=== PATIENT | female | born 1955 | race Caucasian/White ===

== ENCOUNTER → 2022-05-13 13:51 | Outpatient (BNVA) | payer MEDICARE, OTHER, SELFPAY | PROVIDERS: PCP Family Medicine; Visit Provider Podiatrist Foot & Ankle Surgery | DX: L84 Corns and callosities (principal); G60.9 Hereditary and idiopathic neuropathy, unspecified; R60.9 Edema, unspecified | CPT/HCPCS: 11056; 99203 ==

== ENCOUNTER → 2022-06-24 13:12 | Outpatient (BNVA) | payer MEDICARE, OTHER, SELFPAY | PROVIDERS: PCP Family Medicine; Visit Provider Podiatrist Foot & Ankle Surgery | DX: R60.9 Edema, unspecified (principal); G60.9 Hereditary and idiopathic neuropathy, unspecified; Q82.8 Other specified congenital malformations of skin; B35.1 Tinea unguium; L84 Corns and callosities | CPT/HCPCS: 99213 ==

== ENCOUNTER → 2022-08-24 13:37 | Outpatient (BNVA) | payer MEDICARE, OTHER, SELFPAY | PROVIDERS: PCP Family Medicine; Referring Provider Family Medicine; Visit Provider Specialist | DX: G60.9 Hereditary and idiopathic neuropathy, unspecified (principal); M54.12 Radiculopathy, cervical region | CPT/HCPCS: 99204 ==

== ENCOUNTER 2022-09-01 10:27 | Outpatient (CLI) | payer MEDICARE, OTHER, SELFPAY ==
--- NOTE | 2022-09-01 10:35 | MM_ITS ---
WS: [id number] BILATERAL SCREENING DIGITAL TOMOSYNTHESIS MAMMOGRAM WITH CAD HISTORY: SCREENING COMPARISON: 08/29/2021 and 08/28/2020 Bilateral CC and MLO views with tomosynthesis and synthetic mammography submitted. Computer aided det ection analyzed. Breast composition: The breasts are heterogeneously dense, which may obscure small masses. No suspici ous masses, microcalcifications or architectural distortion. Bilateral vascular calcifications. MM/[place] [id number] IMPRESSION: BI-RADS: 2-Benign FOLLOW UP: 1 Year Follow-up
== END 2022-09-01 10:28 | disposition home or self-care (01) ==
LOC: RAD 10:28
PROVIDERS: PCP Family Medicine; Visit Provider Family Medicine
DX: Z12.31 Encounter for screening mammogram for malignant neoplasm of breast (principal)
CPT/HCPCS: 77063; 77067

== ENCOUNTER → 2022-09-03 08:16 | Outpatient (BNVA) | payer MEDICARE, OTHER, SELFPAY | PROVIDERS: PCP Family Medicine; Visit Provider Podiatrist Foot & Ankle Surgery | DX: Q82.8 Other specified congenital malformations of skin (principal); R60.9 Edema, unspecified; G60.9 Hereditary and idiopathic neuropathy, unspecified; B35.1 Tinea unguium; L84 Corns and callosities | CPT/HCPCS: 11721; 17110 ==

== ENCOUNTER → 2022-09-16 08:09 | Outpatient (BNVA) | payer MEDICARE, OTHER, SELFPAY | PROVIDERS: PCP Family Medicine; Visit Provider Podiatrist Foot & Ankle Surgery | DX: Q82.8 Other specified congenital malformations of skin (principal); R60.9 Edema, unspecified; G60.9 Hereditary and idiopathic neuropathy, unspecified; B35.1 Tinea unguium; L84 Corns and callosities | CPT/HCPCS: 17110; 99213 ==

== ENCOUNTER 2022-09-30 08:36 | Outpatient (CLI) | payer MEDICARE, OTHER, SELFPAY ==
--- NOTE | 2022-09-30 08:45 | XRR_ITS ---
PROCEDURE INFORMATION: Exam: XR Left Shoulder Exam date and time: 09/30/2022 8:50 AM Age: 66 years old Clinical indication: Injury or trauma; Fall; Blunt trauma (contusions or hematomas); Left; Injury details: History--lt shoulder pain, PT fell 3 days ago; Additional info: Left shoulder pain after a fall TECHNIQUE: Imaging protocol: Radiologic exam of the Left shoulder. Views: 2 or more views. COMPARISON: No relevant prior studies available. FINDINGS: Bones/joints: Mild degenerative changes are present in the acromioclavicular joint. The glenohumeral joint is unremarkable. There is no fracture, dislocation or other acute abnormality. Soft tissues: Normal. XR/XR shoulder LT min 2V* [id number] IMPRESSION: No acute abnormality.
== END 2022-09-30 08:37 | disposition home or self-care (01) ==
LOC: RAD 08:42
PROVIDERS: PCP Family Medicine; Visit Provider Clinical Nurse Specialist Adult Health
DX: M25.512 Pain in left shoulder (principal)
CPT/HCPCS: 73030

== ENCOUNTER → 2022-10-01 09:21 | Outpatient (BNVA) | payer MEDICARE, OTHER, SELFPAY | PROVIDERS: PCP Family Medicine; Visit Provider Clinical Nurse Specialist Adult Health | DX: M25.562 Pain in left knee (principal); R29.6 Repeated falls; R53.1 Weakness | CPT/HCPCS: 81000 ==

== ENCOUNTER 2022-10-13 14:33 | Outpatient (RCR) | payer MEDICARE, SELFPAY | END 2022-10-29 16:28 | disposition home or self-care (01) | LOC: SPT 14:33 | PROVIDERS: PCP Family Medicine; Visit Provider Clinical Nurse Specialist Adult Health | DX: R29.6 Repeated falls (principal); R53.1 Weakness | CPT/HCPCS: 97110; 97161; 97530 ==

== ENCOUNTER 2022-10-28 08:06 | Outpatient (CLI) | payer MEDICARE, SELFPAY ==
--- NOTE | 2022-10-28 08:45 | MR_ITS ---
WS: [id number] MRI LEFT SHOULDER HISTORY: Severe left shoulder pain that and possible rotator cuff tear COMPARISON: Shoulder radiograph 09/30/2022 TECHNIQUE: Multiplanar sequences of the shoulder joint are submitted. Moderate narrowing of the AC joint. Small erosions along the articular surface of the acromion. Osteo phytic ridging around the distal clavicle and the acromion. Osteophytes encroach upon the supraspinat us tendon and muscle. Moderate subacromial impingement secondary to a 5 mm osteophyte. Biceps tendon remains in the bicipital groove. No os acromion. No acute fracture. Small amount of fluid in the subacromial and subdeltoid bursa and also the subscapularis recess. Ther e is marked thickening of the distal supraspinatus tendon. There is an additional very small insertio n site tear of the supraspinatus. No retraction of the tendon. The tear involves the articular anteri or surface. Moderate tendinopathy in the more proximal tendon. No muscle atrophy or edema. Mild narrowing of the glenohumeral joint. Mild osteophytic ridging around the humeral head. Superior labral tear. Anterior involves only a small portion of the superior labrum. The anterior labrum appea rs intact. MR/MR shoulder LT wo con* [id number] IMPRESSION: 1. Small insertion site tear anterior supraspinatus tendon involving the artic ular surface. 2. Moderate tendinopathy in the distal supraspinatus tendon. 3. Moderate AC joint arthritis. 4. Moderate subacromial impingement. 5. Superior labral tear.
== END 2022-10-28 08:07 | disposition home or self-care (01) ==
LOC: RAD 08:07
PROVIDERS: PCP Family Medicine; Visit Provider Family Medicine
DX: S43.432A Superior glenoid labrum lesion of left shoulder, initial encounter (principal); X58.XXXA Exposure to other specified factors, initial encounter; M13.812 Other specified arthritis, left shoulder
CPT/HCPCS: 73221

== ENCOUNTER → 2022-11-18 13:27 | Outpatient (BNVA) | payer MEDICARE, SELFPAY | PROVIDERS: PCP Family Medicine; Referring Provider Family Medicine; Visit Provider Specialist | DX: S46.812A Strain of other muscles, fascia and tendons at shoulder and upper arm level, left arm, initial encounter (principal); W01.198A Fall on same level from slipping, tripping and stumbling with subsequent striking against other object, initial encounter; Z91.81 History of falling; M77.8 Other enthesopathies, not elsewhere classified | CPT/HCPCS: 20610; 73030; 99204; J1100; J2795; J3301 ==

== ENCOUNTER 2022-12-07 11:35 | Outpatient (RCR) | payer MEDICARE, SELFPAY | END 2023-01-01 23:59 | disposition home or self-care (01) | LOC: SPT 11:35 | PROVIDERS: PCP Family Medicine; Visit Provider Specialist | DX: M25.512 Pain in left shoulder (principal); M25.511 Pain in right shoulder | CPT/HCPCS: 97110; 97162 ==

== ENCOUNTER → 2022-12-09 11:31 | Outpatient (BNVA) | payer MEDICARE, SELFPAY | PROVIDERS: PCP Family Medicine; Visit Provider Specialist | DX: M75.111 Incomplete rotator cuff tear or rupture of right shoulder, not specified as traumatic (principal); M19.011 Primary osteoarthritis, right shoulder | CPT/HCPCS: 73030; 99214 ==

== ENCOUNTER 2023-01-02 06:00 | Outpatient (RCR) | payer MEDICARE, SELFPAY | END 2023-01-31 23:59 | disposition home or self-care (01) | LOC: SPT 06:00 | PROVIDERS: PCP Family Medicine; Visit Provider Specialist | DX: M25.511 Pain in right shoulder (principal); M25.512 Pain in left shoulder | CPT/HCPCS: 97110; 97140 ==

== ENCOUNTER → 2023-01-28 08:08 | Outpatient (BNVA) | payer MEDICARE, SELFPAY | PROVIDERS: PCP Family Medicine; Visit Provider Family Medicine | DX: M25.562 Pain in left knee (principal); I10 Essential (primary) hypertension; E78.5 Hyperlipidemia, unspecified; E03.9 Hypothyroidism, unspecified; M79.7 Fibromyalgia; M19.011 Primary osteoarthritis, right shoulder; G60.9 Hereditary and idiopathic neuropathy, unspecified; R53.1 Weakness | CPT/HCPCS: 80053; 80061; 84439; 84443; 85025 ==

== ENCOUNTER → 2023-02-02 09:23 | Outpatient (BNVA) | payer MEDICARE, SELFPAY | PROVIDERS: PCP Family Medicine; Referring Provider Specialist; Visit Provider Specialist | DX: G60.9 Hereditary and idiopathic neuropathy, unspecified (principal); M79.7 Fibromyalgia; Z91.81 History of falling; Z72.3 Lack of physical exercise | CPT/HCPCS: 99214 ==

== ENCOUNTER → 2023-02-10 08:24 | Outpatient (BNVA) | payer MEDICARE, SELFPAY | PROVIDERS: PCP Family Medicine; Visit Provider Specialist | DX: M19.011 Primary osteoarthritis, right shoulder (principal); M75.111 Incomplete rotator cuff tear or rupture of right shoulder, not specified as traumatic; M77.8 Other enthesopathies, not elsewhere classified; M25.812 Other specified joint disorders, left shoulder | CPT/HCPCS: 99214 ==

== ENCOUNTER → 2023-04-02 06:57 | Outpatient (BNVA) | payer MEDICARE, SELFPAY | PROVIDERS: PCP Family Medicine; Visit Provider Student in an Organized Health Care Education/Training Program | DX: M25.812 Other specified joint disorders, left shoulder (principal); M75.102 Unspecified rotator cuff tear or rupture of left shoulder, not specified as traumatic; M19.012 Primary osteoarthritis, left shoulder | CPT/HCPCS: 99204 ==

== ENCOUNTER → 2023-04-21 10:57 | Outpatient (BNVA) | payer MEDICARE, SELFPAY | PROVIDERS: PCP Family Medicine; Visit Provider Clinical Nurse Specialist Adult Health | DX: Z01.818 Encounter for other preprocedural examination (principal) | CPT/HCPCS: 80048; 85025 ==

== ENCOUNTER 2023-04-26 09:34 | Day surgery (SDC) | payer MEDICARE, SELFPAY ==
[2023-04-23 08:27] VITALS: BMI 36.2
[2023-04-26] VITALS (11 sets, daily range): BP systolic 84–168; BP diastolic 58–78; PULSE 57–81; RESP 12–18; TEMP 35.6–36.6; O2SAT 94–100
[2023-04-26] MEDS: sodium chloride 0.9% 1,000 ML 30 ML IV (10:13)
[2023-04-26] MEDS: acetaminophen 1,000 MG/100 ML PIGGYBACK 400 MG IV (10:14)
--- NOTE | 2023-04-26 10:21 | P.ANESASSM_ITS ---
Pre-Anesthetic Assessment Height/Weight: Height 1.65 m Weight 98.883 kg Temp Pulse Resp BP Pulse Ox O2 Del Method 97.8 F 63 17 168/74 94 Room Air 04/26/23 09:53 04/26/23 09:53 04/26/23 09:53 04/26/23 09:53 04/26/23 09:53 04/26/23 09:56 Preop Diagnosis: Left shoulder rotator cuff tear, biceps tendon tear, AC joint arthritis lab Operation Date: 04/26/23 11:00 Proposed Procedures p Left shoulder diagnostic and surgical arthroscopy with rotator cuff repair 95040, M25.812, M75.102, M19.012(Left) - Guillermo Meena, DO s labral debridement 76342(Left) - Guillermo Meena, DO s Bicep Tenotomy(Left) - Guillermo Lebanon, DO s AC joint resection 44494(Left) - Guillermo Meena, DO s Subacromial Decompression 29070(Left) - Guillermo Meena, DO Familial anesthetic complications: Overdose of opiates post op d/t uncontrolled pain, requiring narcan and MICU stay Was Beta Alvina taken within 24 hours: Yes Was Clonidine taken within 24 hours: N/A Last intake: Intake Last Liquid Date 04/25/23 Last Liquid Time 21:00 Last Solid Date 04/25/23 Last Solid Time 21:00 Social No alcohol and No tobacco Exam alert, oriented x 3, clear to auscultation bilaterally and regular rate & rhythm Airway Mallampati: Class II Dentition: full Pulmonary Sleep Apnea CV/HEM Arrythmia (sinus tachy) and Hypertension MTHFR GI Gastroesophageal Reflux Disease Metabolic Morbid Obesity and Thyroid Disease [facility] [place] Fibromyalgia Anesthetic Plan ASA status: 3 Anesthesia: General and Regional (specify below) Risk of > 500 ml blood loss (7ml/kg in children): No Medications/Allergies Home Medications Medication Instructions Recorded Confirmed Last Taken Type pantoprazole 40 mg tablet,delayed 40 mg PO BID 04/30/22 04/23/23 04/25/23 History release Compression Stockings #1 ea 06/24/22 04/21/23 Unknown Rx alendronate 70 mg tablet (Fosamax) 70 mg PO ONCE #12 tabs 10/09/22 04/23/23 04/17/23 Rx duloxetine 60 mg capsule,delayed 60 mg PO BID #180 caps 10/09/22 04/23/23 04/25/23 Rx release losartan 50 mg tablet 50 mg PO DAILY #90 tabs 10/09/22 04/23/23 04/25/23 Rx levothyroxine 100 mcg tablet 100 mcg PO DAILY #90 tabs 10/12/22 04/23/23 04/25/23 Rx (Synthroid) metoprolol tartrate 25 mg tablet 25 mg PO BID #180 tabs 10/12/22 04/23/23 04/26/23 06:00 Rx tizanidine 4 mg tablet 4 mg PO BID PRN muscle spasticity 01/28/23 04/23/23 04/25/23 Rx #60 tabs gabapentin 300 mg capsule 300 mg PO TID 90 days #270 caps 03/19/23 04/23/23 04/25/23 Rx Allergies Allergy/AdvReac Type Severity Reaction Status Date / Time shellfish derived Allergy Intermediate sob Verified 04/26/23 09:48 vancomycin Allergy Intermediate ALGY-Hives Verified 04/26/23 09:48 ethyl alcohol Allergy ALGY-Difficulty Verified 04/26/23 09:48 Breathing pregabalin [From Lyrica] Allergy ADR-Nausea Verified 04/26/23 09:48 tramadol [From Ultram] AdvReac Intermediate nausea Verified 04/26/23 09:48 amoxicillin [From Augmentin] AdvReac Mild vomitting Verified 04/26/23 09:48 azithromycin AdvReac Mild diarrhea Verified 04/26/23 09:48 clavulanic acid AdvReac Mild vomitting Verified 04/26/23 09:48 [From Augmentin] erythromycin base AdvReac Mild vomitting Verified 04/26/23 09:48 Current Medications Generic Name Dose Route Start Last Admin Trade Name Freq PRN Reason Stop Dose Admin Sodium Chloride 1,000 mls @ 30 mls/hr 04/26/23 09:45 04/26/23 10:13 Sodium Chloride 0.9% IV 04/27/23 09:44 30 mls/hr .Q24H HUYEN Administration PFSH Anesthesia Medical History (Updated 04/21/23 @ 10:43 by Siddhartha Basurto NP) Fibromyalgia Hyperlipidemia not currently on medication Hypertension Hypothyroid Idiopathic neuropathy Inappropriate sinus tachycardia MTHFR mutation RADHA (obstructive sleep apnea) compliant with CPAP Surgical History History of hernia surgery History of hip surgery History of laparoscopic cholecystectomy Hx of hysterectomy hyst with oopherectomy Hx of total knee replacement Family History Mother Cancer ovarian Stroke Denies family history of Anesthesia complication Bleeding disorder Social History Smoking and tobacco status: former smoker Quit status (tobacco): has quit using tobacco Year quit tobacco: 1pack per day for 14 year Former quit date comment: 1987 Substance/Drug Use: never Data Anesthesia Cardiac Studies: No Data to Display
--- NOTE | 2023-04-26 10:40 | ANES.PROC ---
Anesthesia Procedures Procedure/Date: 04/26/23 Nerve Block ^: Nerve Block 1: Main Anesthesia: general anesthesia Time Out Performed: Yes Consent: requested by attending/covering physician, from patient, from other, risks and benefits reviewed and patient agrees to proceed Nerve block location: interscalene (L) Anesthesia monitors applied: pulse oximetry, EKG, BP cuff and oxygen Nerve block position: semi sitting Anesthetic Used: ropivicaine 0.5% (20 ml) and with decadron (4 mg) Ultrasound used to: recognize landmarks, visualize and ID brachial plexus and visualize and ID interscalene groove Nerve Stimulator Used?: No Interscalene/Femoral BLK: 2 stimuplex 22 g needle used for position and inplane approach, visualize local anesthetic spread and no vascular puncture identified Injection: neg aspiration of heme Patient Tolerated Procedure: well and no complications Complications: none
[2023-04-26] MEDS: ondansetron 2 mg/ML SDV 2 mL 4 MG IVP (10:59)
--- NOTE | 2023-04-26 11:20 | W.PM.OPSUD ---
Surgery/Procedure H&P Update DATE OF PROCEDURE: April 26, 2023 DATE H&P PERFORMED: 04/21/23 CHANGES TO PREVIOUS DOCUMENTATION: None. No change in HPI from office visit on 04/21/2023. Patient has left shoulder rotator cuff tear AC joint arthritis as well as subacromial impingement superior labral tear we talked about treatment options and through shared decision making she elects proceed with surgical intervention all questions answered at this time. PREOP DIAGNOSIS: Left shoulder rotator cuff tear, biceps tendon tear, AC joint arthritis lab PRIMARY INDICATION FOR PROCEDURE: Shoulder rotator cuff tear, biceps tendon/superior labral tear, AC joint arthritis, subacromial impingement PLANNED PROCEDURE: Operation Date: 04/26/23 11:00 Proposed Procedures p Left shoulder diagnostic and surgical arthroscopy with rotator cuff repair 84118, M25.812, M75.102, M19.012(Left) - Guillermo Powhatan, DO s labral debridement 72396(Left) - Guillermo Paredesatt, DO s Bicep Tenotomy(Left) - Guillermo Robledo DO s AC joint resection 05443(Left) - Guillermo Powhatan, DO s Subacromial Decompression 85074(Left) - Guillermo Robeldo, DO
[2023-04-26] MEDS: ceFAZolin 2,000 MG in sodium chloride 0.9% (plus) 50 ML 100 MG IV (11:37)
[2023-04-26] MEDS: EPINEPHrine 1 mg/mL INJ 2 MG XX (12:28)
--- NOTE | 2023-04-26 13:33 | PM.OP2 ---
Brief Operative Note Date of procedure: 04/26/23 Pre-op diagnosis: Left shoulder rotator cuff tear, biceps tendon tear, labral tear, AC arthri Post-op diagnosis: same (AC joint arthritis, subacromial impingement) Procedure Done: Left shoulder diagnostic and surgical arthroscopy with arthroscopic rotator cuff repair (small) Left shoulder diagnostic and surgical arthroscopy with biceps tenotomy Left shoulder diagnostic and surgical arthroscopy with labral debridement Left shoulder diagnostic and surgical arthroscopy with AC joint resection (distal clavicle excision) Left shoulder diagnostic and surgical arthroscopy with subacromial decompression (acromioplasty and bursectomy) Surgeon: Guillermo Robledo Estimated blood loss (mL): 5 Complications: none Post-op Plan: Patient taken to PACU in stable condition recovering well. Shoulder sling with abduction pillow on in place patient receive appropriate discharge instructions as well as pain medication postoperatively. We will follow postoperative rotator cuff repair protocol. Maintain sling at all times. Given appropriate instructions for dressing we will follow-up in the orthopedic office in 2 weeks. Understand if they have any questions or concerns and contact the office. Condition: stable Disposition: same day Coding Level of Care Code Acute Code for Danika Yan
--- NOTE | 2023-04-26 13:38 | P.OP_ITS ---
Operative Report Date of procedure: April 26, 2023 Pre-op diagnosis: Preop Diagnosis Left shoulder rotator cuff tear, biceps tendon tear, AC joint arthritis lab Procedure: Post-op diagnosis: Left?shoulder?labral tear Left?shoulder?biceps tendon tear Left?shoulder?rotator cuff tear Left?shoulder?AC joint arthritis Left?shoulder?subacromial bursitis/impingement Procedure done: Left?shoulder?diagnostic and surgical arthroscopy with arthroscopic rotator cuff repair(small) Left?shoulder?diagnostic and surgical arthroscopy biceps tenotomy Left?shoulder?diagnostic and surgical arthroscopy labral debridement Left?shoulder?diagnostic and surgical arthroscopy acromioclavicular joint resection Left?shoulder?diagnostic and surgical arthroscopy subacromial decompression (acromioplasty and bursectomy) Surgeon: Guillermo Robledo DO Estimated blood loss: 5mL IV fluids: See anesthesia record Implants: Arthrex 4.75 swivel lock Arthrex scorpion and suture tape Complications: None Condition: stable Disposition: same day Brief History: Patient been seen and worked up in the outpatient setting for Left?shoulder?pain.? Pt had an MRI which showed findings below.? Patient's failed conservative treatment and has weakness.? We talked about treatment options far as nonoperative and operative intervention..? We talked about risk benefits complication alternatives surgical nonsurgical treatment options.? Understanding risk of surgery pt agrees to proceed with surgical intervention.? All questions have been answered at this time.? Patient elects proceed with surgery and consent obtained in office. MR/MR shoulder LT wo con* [id number] IMPRESSION: ? 1.? Small insertion site tear anterior supraspinatus tendon involving the articular surface. 2.? Moderate tendinopathy in the distal supraspinatus tendon. 3.? Moderate AC joint arthritis. 4.? Moderate subacromial impingement. 5.? Superior labral tear. Procedure: Patient seen evaluated in the preoperative holding area.? Consent reviewed and signed with patient.? Once again reviewed patient's MRI results as well as? planned surgical intervention.? Correct extremity marked.? Patient seen evaluated by anesthesia department received regional anesthesia.? Once ready for surgery was taken back to the operative suite.? Patient then subsequently underwent anesthesia per the anesthesia department was transported onto the OR table.? Patient was then placed into a lateral decubitus position with a beanbag and was appropriately secured to the bed.? All bony prominences well-padded.? Patient then had the Left upper extremity was then prepped and draped in standard orthopedic fashion.? Patient received appropriate preoperative antibiotics.? Final timeout performed. The Left upper extremity was then held in hanging from traction utilizing sterile technique.? Next started with standard diagnostic and surgical arthroscopy with posterior portal position introduced arthroscope into the glenohumeral joint.? Visualized the glenohumeral joint I then introduced a spinal needle within the rotator cuff interval to confirm appropriate anterior portal placement.? Once this was confirmed I then made my small incision and then introduced my arthroscopic shaver into the glenohumeral joint.? After thorough debridement was clearly evident patient had a significant erythema as well as positive liftoff sign of the biceps anchor and biceps tendon tear as it was pulled within the joint.? Decision at this time was made to perform a biceps tenotomy.? Introduced a thermal wand and a biceps tenotomy was performed to com pletion With appropriate release.? Next I evaluated the subscapularis tendon which was intact and no evidence of tear. ?Next there was significant labral tearing at biceps anchor and circumferential .? ? I then subsequently utilized a a arthroscopic shaver and thermal wand to perform a labral debridement.? This point time I then visualized the glenohumeral joint.? The glenohumeral joint was found to have grade 1-2? chondromalacia throughout.? Infrapatellar pouch was free of loose bodies from viewing the posterior portal.? Next a visualized the rotator cuff superiorly and there was found to be a small undersurface tearing of the supraspinatus tendon.? I utilized a spinal needle to carmelita this location.?? This completed my work within the glenohumeral joint all fluid was suctioned free of the joint.? ?Next I reintroduced the arthroscope posteriorly.? And went to the subacromial space.? I established my lateral working portal at the site of which my spinal needle was marking of the rotator cuff tear.? Thermal wand was then introduced laterally and then I subsequently performed extensive bursectomy of the subacromial space.? Patient had a large anterior bone spur.? At this point time I proceeded with my AC joint resection thermal wand was used and track to the anterior edge of the acromion and then tracked all the way to the AC joint.? Once identified the AC joint this was very arthritic in nature.? Thermal wand was placed anteriorly to establish appropriate plane for AC joint resection.? Once appropriate margins and anterior inferior and anterior capsule was released I then introduced arthroscopic shaver and a bur and performed AC joint resection of both the acromion to cope plane at the AC joint and a distal clavicle resection was then performed totaling 1 cm in size and was confirmed.? This completed my AC joint resection and I then introduced the arthroscopic shaver laterally while continuing to view posteriorly.? I then performed an acromioplasty to complete my subacromial decompression prior to fixing the rotator cuff tear.? Next the arthroscopic shaver was then used previous spinal needle spot that is marked the small hole in the rotator cuff this was consistent with a small full- thickness tear.? Given the small size this did not need a medial and lateral row configuration as result my plan was for a horizontal mattress stitch with a single lateral row anchor.? As result I loaded and Arthrex scorpion with fiber tape and subsequently.? A horizontal mattress purchase appropriately spaced to the small tear of the supraspinatus tendon.? At this point in time and then introduced a shaver to debride the rotator cuff footprint and decorticate the footprint in preparation for repair, next I marked by swivel lock position.? Fiber tape was then loaded into a 4.75 swivel lock I then subsequently punched and then subsequently placement 4.75 swivel lock while maintaining appropriate tension and repair of rotator cuff and this was advanced with excellent fixation I then had a final confirmation of appropriate repair of the supraspinatus rotator cuff tendon tear.? Sutures were then cut with an arthroscopic suture cutter and subsequently evaluated the rotator cuff repair.? Repair was found to be satisfactory?shoulder?was taken through range of motion and the repair moved as a unit with no evidence of loss of fixation. ?I then switched the arthroscope to the lateral portal to confirm this tension- free repair.? I took the?shoulder?through range of motion and the rotator cuff repair was stable and moved as a unit. ?Next I then introduced the arthroscopic shaver posteriorly to complete my subacromial decompression appropriate complaining all the way up to the lateral edge of the acromion.? This completed the surgery.? All fluid was suctioned from the?shoulder.? All instruments were removed.? The lateral incision was then closed with nylon stitches.? As well as the portal sites closed with portal nylon stitches.? Xeroform 4 x 4's ABD and tape was then applied to the Left?shoulder?and was placed into a?shoulder?abduction pillow sling for rotator cuff repair.? Patient was then awakened from anesthesia and then taken back to PACU in stable condition.? Patient tolerated procedure without any issues. Disposition: Patient taken back in stable condition recovering well.? Dressings on in place clean dry and intact.? Will be nonweightbearing to the Left upper extremity.? Follow rotator cuff repair protocol.? Patient to follow-up with me in the office in 2 weeks.? Patient will receive appropriate discharge instruction as well as pain medication postoperatively.? All questions answered.? We will contact the office for any questions or concerns.
--- NOTE | 2023-04-26 13:38 | PM.PACU ---
PACU note Narrative: Patient taken to PACU in stable condition recovering well. Dressings on in place clean dry and intact sling on in place left shoulder. Patient received regional anesthesia unable to assess motor or sensory. Distal pulses are palpable hand warm well perfused. Exam: awake Disposition: discharged
[2023-04-26] MEDS: fentaNYL 50 mcg/mL INJ 2mL 100 MCG IVP (13:57)
[2023-04-26] MEDS: oxyCODONE-APAP 5-325 mg Tablet 1 TAB PO (14:27)
--- NOTE | 2023-04-26 15:15 | ANE.PACU2 ---
Inpatient post-anesthesia follow up: Airway intact: Yes Vital signs: Temperature 96.1 F Pulse Rate 71 Respiratory Rate 18 Blood Pressure 140/64 Pulse Oximetry 97 Oxygen Delivery Me thod Room Air Oxygen Flow Rate 6 Fraction of Inspir ed Oxygen Hydration adequate: Yes Nausea and vomiting: Yes Pain level: 3 Mental status: Baseline
== END 2023-04-26 15:32 | disposition home or self-care (01) ==
PROVIDERS: PCP Family Medicine; Visit Provider Student in an Organized Health Care Education/Training Program
PROC: (CPT 29805; principal; 2023-04-26 11:00)
PROC: (CPT 29824; 2023-04-26 11:00)
PROC: (CPT 23405; 2023-04-26 11:00)
PROC: 0RSH0ZZ Reposition Left Acromioclavicular Joint, Open Approach (ICD-10-PCS; CPT 29824; 2023-04-26 11:00)
PROC: (CPT 29826; 2023-04-26 11:00)
DX: M75.102 Unspecified rotator cuff tear or rupture of left shoulder, not specified as traumatic (principal); M19.012 Primary osteoarthritis, left shoulder; X58.XXXA Exposure to other specified factors, initial encounter; M75.42 Impingement syndrome of left shoulder; S46.212A Strain of muscle, fascia and tendon of other parts of biceps, left arm, initial encounter
CPT/HCPCS: 29824; 29826; 29827; 29828; 36415; 86850; 86900; C1713; J0131; J0171; J0690; J1100; J2405; J2704; J2710; J2795; J3010; J3490; J7030

== ENCOUNTER → 2023-05-11 07:48 | Outpatient (BNVA) | payer MEDICARE, SELFPAY | PROVIDERS: PCP Family Medicine; Visit Provider Student in an Organized Health Care Education/Training Program | DX: Z98.890 Other specified postprocedural states (principal) | CPT/HCPCS: 99024 ==

== ENCOUNTER 2023-05-18 07:33 | Outpatient (RCR) | payer MEDICARE, SELFPAY | END 2023-06-03 23:59 | disposition home or self-care (01) | LOC: SPT 07:33 | PROVIDERS: PCP Family Medicine; Visit Provider Student in an Organized Health Care Education/Training Program | DX: Z47.89 Encounter for other orthopedic aftercare (principal) | CPT/HCPCS: 97110; 97161 ==

== ENCOUNTER 2023-06-04 06:00 | Outpatient (RCR) | payer MEDICARE, SELFPAY | END 2023-07-03 23:59 | disposition home or self-care (01) | LOC: SPT 06:00 | PROVIDERS: PCP Family Medicine; Visit Provider Student in an Organized Health Care Education/Training Program | DX: Z98.890 Other specified postprocedural states (principal) | CPT/HCPCS: 97110 ==

== ENCOUNTER → 2023-06-15 08:25 | Outpatient (BNVA) | payer MEDICARE, SELFPAY | PROVIDERS: PCP Family Medicine; Visit Provider Student in an Organized Health Care Education/Training Program | DX: Z98.890 Other specified postprocedural states (principal) | CPT/HCPCS: 99024 ==

== ENCOUNTER 2023-07-04 06:00 | Outpatient (RCR) | payer MEDICARE, SELFPAY | END 2023-07-30 23:59 | disposition home or self-care (01) | LOC: SPT 06:00 | PROVIDERS: PCP Family Medicine; Visit Provider Student in an Organized Health Care Education/Training Program | DX: Z98.890 Other specified postprocedural states (principal) | CPT/HCPCS: 97110 ==

== ENCOUNTER 2023-09-08 10:52 | Outpatient (CLI) | payer MEDICARE, SELFPAY ==
--- NOTE | 2023-09-08 10:54 | MM_ITS ---
WS: [id number] Bilateral screening 3D tomosynthesis digital mammogram, 09/08/2023 Clinical Data: SCREENING Comparison: 08/31/2022, 08/29/2021, 08/28/2020, 08/05/2019. Findings: The breast parenchymal pattern shows heterogeneous density. No spiculated masses or clustered calcifi cations are seen. There are no secondary signs of carcinoma. There are vascular calcifications noted. Impression: 1. Negative bilateral mammogram unchanged. 2. Recommend annual screening mammograms. MM/[place] [id number] BIRADS: 1-Negative FOLLOW UP: 1 Year Follow-up The CAD cafeteria or lunchroom checker was used.
== END 2023-09-08 10:53 | disposition home or self-care (01) ==
LOC: RAD 10:52
PROVIDERS: PCP Family Medicine; Visit Provider Family Medicine
DX: Z12.31 Encounter for screening mammogram for malignant neoplasm of breast (principal)
CPT/HCPCS: 77063; 77067

== ENCOUNTER → 2023-09-14 08:26 | Outpatient (BNVA) | payer MEDICARE, SELFPAY | PROVIDERS: PCP Family Medicine; Visit Provider Student in an Organized Health Care Education/Training Program | DX: Z98.890 Other specified postprocedural states (principal) | CPT/HCPCS: 99213 ==

== ENCOUNTER → 2023-10-01 07:33 | Outpatient (BNVA) | payer MEDICARE, SELFPAY | PROVIDERS: PCP Family Medicine; Visit Provider Clinical Nurse Specialist Adult Health | DX: J06.9 Acute upper respiratory infection, unspecified (principal) | CPT/HCPCS: 87400; 87426 ==

== ENCOUNTER → 2023-12-30 11:28 | Outpatient (BNVA) | payer MEDICARE, SELFPAY | PROVIDERS: PCP Family Medicine; Visit Provider Family Medicine | DX: R30.0 Dysuria (principal) | CPT/HCPCS: 81000; 87086 ==

== ENCOUNTER 2024-01-31 06:20 | Outpatient (CLI) | payer MEDICARE, SELFPAY ==
--- NOTE | 2024-01-31 06:30 | US_ITS ---
WS: [id number] RENAL ULTRASOUND HISTORY: Hematuria COMPARISON: None available. TECHNIQUE: 2-D and color Doppler imaging of the kidney submitted. Right kidney: 10.1 cm x 5.0 cm x 5.6 cm. Cortex: 1.1 cm Normal echogenicity with no hydronephrosis or mass. Left kidney: 10.3 cm x 4.6 cm x 4.8 cm. Cortex: 1.1 cm There is very minimal dilatation of the LEFT renal pelvis. No calyceal dilatation. Aorta: Normal. Urinary Bladder: Normal distention. IMPRESSION: 1. Very minimal prominence of the LEFT renal pelvis without calyceal dilatation. Pelviectasis, no hy dronephrosis. 2. No mass or calcification identified by ultrasound.
== END 2024-01-31 06:21 | disposition home or self-care (01) ==
LOC: RAD 06:20
PROVIDERS: PCP Family Medicine; Visit Provider Family Medicine
DX: R31.9 Hematuria, unspecified (principal)
CPT/HCPCS: 76770

== ENCOUNTER → 2024-02-01 07:56 | Outpatient (BNVA) | payer MEDICARE, SELFPAY | PROVIDERS: PCP Family Medicine; Visit Provider Family Medicine | DX: I10 Essential (primary) hypertension (principal); E78.5 Hyperlipidemia, unspecified; E03.9 Hypothyroidism, unspecified; E11.9 Type 2 diabetes mellitus without complications; R31.9 Hematuria, unspecified | CPT/HCPCS: 80053; 80061; 84443; 85025 ==

== ENCOUNTER → 2024-08-09 13:21 | Outpatient (BNVA) | payer MEDICARE, SELFPAY | PROVIDERS: PCP Family Medicine; Visit Provider Podiatrist Foot & Ankle Surgery | DX: Q82.8 Other specified congenital malformations of skin (principal); R60.9 Edema, unspecified; G60.9 Hereditary and idiopathic neuropathy, unspecified; B35.1 Tinea unguium; L84 Corns and callosities | CPT/HCPCS: 99213 ==

== ENCOUNTER → 2024-08-22 08:07 | Outpatient (BNVA) | payer MEDICARE, SELFPAY | PROVIDERS: PCP Family Medicine; Visit Provider Family Medicine | DX: E11.9 Type 2 diabetes mellitus without complications (principal); I10 Essential (primary) hypertension | CPT/HCPCS: 80048; 83735; 83880; 84443 ==

== ENCOUNTER 2024-09-11 07:24 | Outpatient (CLI) | payer MEDICARE, SELFPAY ==
--- NOTE | 2024-09-11 | ECG_ITS ---
[facility] Test Date: 2024-09-11 Pat Name: Tiffani Canales Department: Room: Gender: Female Senior Research Analyst: : 1955 Requested By: Matt Flores Order Number: [id number] Reading MD: Interpretive Statements Lung unchanged pre/post procedure; Intraprocedure shortess of breath; Symptoms resoled by discharge [email or web address]
--- NOTE | 2024-09-11 07:33 | MM_ITS ---
WS: [id number] VIEWS: MLO and CC views both breasts. 3D digital tomosynthesis is also included in this exam. Comparison made with prior exam of 08/05/2019, 08/28/2020, 08/29/2021, 09/01/2022, 09/08/2023.. Findings: The breasts are heterogeneously dense, which may obscure small masses. No suspicious mass, tumor calcification or architectural distortion. MM/MM scr BI tomosynthesis [id number] Impression: BI-RADS: 2 - Benign FOLLOW-UP: 1 Year Follow-up This mammogram was also analyzed by the Computer Aided Detection System R2 Imag e Financial Economist.
--- NOTE | 2024-09-11 08:08 | NMCV_ITS ---
NM jose perf SPECT r/s* [id number] Tiffani Canales Age: 68 Gender: F : 1955 Exam Date: 09/11/2024 08:08 Ordering Phys: Matt Ram MD Technologist: TREMAINE Colbert Exam Location: [facility] Indications: cp STRESS TEST [facility] IMAGE PROTOCOL Rest/Stress 1 Exercise Day Radiopharmaceutical Dose (mCi) Administration Site Administered by Rest: Tc-99m 10.7 IV TREMAINE Colbert Sestamibi Stress:Tc-99m 32.5 IV TREMAINE Gauthier Sestamibi Rest: 11-Sep-2024 60 Discovery 630 Stress: 11-Sep-2024 30 Discovery 630 Radiopharmaceutical was injected at 92 % maximum heart rate. Images obtained in supine and prone position. SPECT RESULTS Technical Quality: Good Raw Data Analysis: Normal Image Corrections: No attenuation or motion correction applied Summed Stress Score: 1 Summed Rest Score: 3 Summed Difference Score: 0 PERFUSION FINDINGS SPECT images demonstrate homogeneous tracer distribution throughout the myocardium. FUNCTIONAL RESULTS (calculated via Gated SPECT) Stress Image LV EF (%): 88 Stress EDV (mL):78 TID: 0.73 Stress ESV (mL):9 FUNCTIONAL FINDINGS: There is normal left ventricular systolic function. IMPRESSIONS 1 Normal myocardial perfusion imaging with no evidence of ischemia. 2. LV systolic function is normal Morro Servin MD (Electronically Signed) Final Date: 11 September 2024 16:44 S
[2024-09-11 08:09] VITALS: BMI 34.2
[2024-09-11 09:53] VITALS: BP 156/76; PULSE 99
--- NOTE | 2024-09-11 14:15 | USCV_ITS ---
Tiffani Canales Age: 68 Gender: F : 1955 Exam Date: 09/11/2024 08:23 Ordering Phys: Matt Ram MD Technologist: CT Exam Location: [facility] [place] Indication: BP: 132 / 78 HR: 70 Rhythm: Sinus Technical Quality: Adequate MEASUREMENTS (Male / Female) Normal Values 2D ECHO LVOT Diameter 2.0 cm LV Ejection Fraction MOD 4C 69.3 % LV Ejection Fraction MOD 2C 59.6 % LV Ejection Fraction 2C AL 61.1 % LA Diameter 3.6 cm RA Systolic Volume 4C AL 41.7 ml RA Systolic Volume 4C MOD 39.4 ml LA Sys Volume AL 43.3 cm cubed LA Sys Volume Index AL 20.3 cm cubed/m squared Aorta at Sinotubular Diameter 2.1 cm M-MODE LA Ao Ratio MM 1.5 AV Cusp Separation MM 1.7 cm DOPPLER AV Peak Velocity 199.0 cm/s LVOT Peak Velocity 147.0 cm/s AV Area Cont Eq vti 2.5 cm squared AV Area Cont Eq pk 2.4 cm squared MV Peak Velocity 104.0 cm/s MV Area PHT 2.7 cm squared Mitral E to A Ratio 1.1 TR Peak Velocity 186.0 cm/s TR Peak Gradient 13.8 mmHg TV Peak E Velocity 81.0 cm/s PV Peak Velocity 141.0 cm/s FINDINGS Left Ventricle Normal left ventricular size and systolic function, EF 65%.no regional wall motion abnormalities. Mild left ventricular hypertrophy. Grade I/IV diastolic dysfunction (abnormal relaxation filling pattern), normal to mildly elevated filling pressures. Right Ventricle The right ventricle is normal in size and function. Right Atrium The right atrium is normal in size. Left Atrium Mildly increased left atrial size. Mitral Valve Structurally normal mitral valve without significant stenosis or prolapse. There is no mitral regurgitation. Aortic Valve Mild aortic valve regurgitation. Thickened aortic valve. Aortic valve sclerosis. Tricuspid Valve Trace tricuspid valve regurgitation. Estimated pulmonary artery peak systolic pressure 14 mmHg, Pulmonic Valve Mild pulmonary valve regurgitation. Pericardium Normal pericardium without effusion. Aorta Normal ascending aorta dimension. IVC Inferior vena cava not visualized. CONCLUSIONS Normal left ventricular size and systolic function, EF 65%.no regional wall motion abnormalities. Mild left ventricular hypertrophy. Grade I/IV diastolic dysfunction (abnormal relaxation filling pattern), normal to mildly elevated filling pressures. Mildly increased left atrial size. Structurally normal mitral valve without significant stenosis or prolapse. There is no mitral regurgitation. Mild aortic valve regurgitation. Thickened aortic valve. Aortic valve sclerosis. Trace tricuspid valve regurgitation. Mild pulmonary valve regurgitation. Estimated pulmonary artery peak systolic pressure 14 mmHg, There is no pericardial effusion. There are no intracardiac masses. No similar previous studies are available for comparison Dr Chi Thomas MD [facility] (Electronically Signed) Final Date: 15 September 2024 13:25 S
== END 2024-09-11 07:25 | disposition home or self-care (01) ==
LOC: RAD 07:28 → CDL 08:01
PROVIDERS: PCP Family Medicine; Visit Provider Family Medicine
DX: Z12.31 Encounter for screening mammogram for malignant neoplasm of breast (principal); R92.333 Mammographic heterogeneous density, bilateral breasts; R07.9 Chest pain, unspecified; R06.02 Shortness of breath; I50.30 Unspecified diastolic (congestive) heart failure; I70.0 Atherosclerosis of aorta
CPT/HCPCS: 77063; 77067; 78452; 93017; 93306; A9500

== ENCOUNTER 2025-01-18 11:31 | Outpatient (CLI) | payer MEDICARE, SELFPAY ==
--- NOTE | 2025-01-18 11:37 | XR_ITS ---
WS: [email or web address] Chest 2 views, 01/18/2025 Clinical Data: dyspnea Comparison: None. Findings: No nodules, masses or effusions are seen. The heart is normal. The pulmonary vascularity is not increased. No pneumonia or pneumothorax is seen. The aortic arch and descending thoracic aorta show slight tortuosity. There is a minimal dextroscoliosis with osteoarthritis of the thoracic spine. XR/XR chest 2V* [id number] Impression: Atherosclerosis.
== END 2025-01-18 11:32 | disposition home or self-care (01) ==
PROVIDERS: PCP Family Medicine; Visit Provider Family Medicine
DX: R06.00 Dyspnea, unspecified (principal); R07.9 Chest pain, unspecified; I70.90 Unspecified atherosclerosis
CPT/HCPCS: 71046; 80053; 83880; 85025; 85379; 86140

== ENCOUNTER → 2025-02-06 12:49 | Outpatient (BNVA) | payer MEDICARE, SELFPAY | PROVIDERS: PCP Family Medicine; Visit Provider Podiatrist Foot & Ankle Surgery | DX: Q82.8 Other specified congenital malformations of skin (principal); R60.9 Edema, unspecified; G60.9 Hereditary and idiopathic neuropathy, unspecified; B35.1 Tinea unguium; L84 Corns and callosities; M77.41 Metatarsalgia, right foot; M77.42 Metatarsalgia, left foot | CPT/HCPCS: 99213 ==

== ENCOUNTER 2025-02-27 09:22 | Outpatient (CLI) | payer MEDICARE, SELFPAY ==
--- NOTE | 2025-02-27 09:30 | XR_ITS ---
WS: [email or web address] RIGHT ANKLE: 2 VIEW(S) TECHNIQUE: AP and lateral. HISTORY: Pain and swelling. COMPARISON: None available. Mild narrowing of the joint space. No osteochondral lesions or fractures. No joint effusion. No joint effusion or widening of the ankle mortise. Small calcaneal spur. Moderate soft tissue edema surrounding the ankle. XR/XR ankle RT 2V [id number] IMPRESSION: 1. Moderate soft tissue edema surrounding ankle. No joint effusion. 2. No acute fracture. No osteochondral lesions.
--- NOTE | 2025-02-27 09:30 | XR_ITS ---
WS: [email or web address] LEFT ANKLE: 2 VIEW(S) TECHNIQUE: AP and lateral. HISTORY: ankle pain COMPARISON: None available. Normal anatomic alignment with no fracture or dislocation. No joint effusion or widening of the ankle mortise. No significant degenerative changes at the joint spaces. No osteochondral lesions. There is mild soft tissue edema surrounding the ankle. 8 mm calcaneal spur. XR/XR ankle LT 2V [id number] IMPRESSION: 1. No acute fracture or osteochondral lesion. 2. Soft tissue edema surrounding the ankle. No joint effusion.
== END 2025-02-27 09:23 | disposition home or self-care (01) ==
PROVIDERS: PCP Family Medicine; Visit Provider Family Medicine
DX: M19.071 Primary osteoarthritis, right ankle and foot (principal); E03.9 Hypothyroidism, unspecified; G60.9 Hereditary and idiopathic neuropathy, unspecified; I10 Essential (primary) hypertension; R60.0 Localized edema; M77.32 Calcaneal spur, left foot; M77.31 Calcaneal spur, right foot
CPT/HCPCS: 73600; 80061; 84443; 84550; 85025; 86140

== ENCOUNTER 2025-03-02 14:38 | Outpatient (CLI) | payer MEDICARE, SELFPAY ==
--- NOTE | 2025-03-02 15:00 | XR_ITS ---
WS: [email or web address] SCREENING DEXA SCAN [facility] CLINICAL INFORMATION: screening COMPARISON: None. FINDINGS: The L1-L4 bone mineral density measures 1.124 g/cm2. This corresponds to a T score score of -0.5 and Z score of 0.0. Left forearm bone mineral density measures 0.76. This corresponds to a T score of -1.3 and Z score of 0.3. XR/XR DEXA axial skeleton* [id number] IMPRESSION: Normal bone mineralization lumbar spine. Osteopenia LEFT forearm
== END 2025-03-02 14:39 | disposition home or self-care (01) ==
LOC: RAD 14:39
PROVIDERS: PCP Family Medicine; Visit Provider Family Medicine
DX: Z00.00 Encounter for general adult medical examination without abnormal findings (principal); M85.832 Other specified disorders of bone density and structure, left forearm
CPT/HCPCS: 77080

== ENCOUNTER 2025-03-14 16:16 | Outpatient (CLI) | payer MEDICARE, SELFPAY | END 2025-03-14 16:17 | disposition home or self-care (01) | LOC: SPT 16:17 | PROVIDERS: PCP Family Medicine; Visit Provider Podiatrist Foot & Ankle Surgery | DX: Z46.89 Encounter for fitting and adjustment of other specified devices (principal); L84 Corns and callosities; B35.1 Tinea unguium; G60.9 Hereditary and idiopathic neuropathy, unspecified; R60.9 Edema, unspecified; Q82.8 Other specified congenital malformations of skin | CPT/HCPCS: L3030 ==

== ENCOUNTER 2025-03-23 14:56 | Outpatient (CLI) | payer MEDICARE, SELFPAY | END 2025-03-23 14:57 | disposition home or self-care (01) | PROVIDERS: PCP Family Medicine; Visit Provider Family Medicine | DX: K21.9 Gastro-esophageal reflux disease without esophagitis (principal) | CPT/HCPCS: 87338 ==

== ENCOUNTER → 2025-07-03 13:26 | Outpatient (BNVA) | payer MEDICARE, SELFPAY | PROVIDERS: PCP Family Medicine; Visit Provider Podiatrist Foot & Ankle Surgery | DX: Q82.8 Other specified congenital malformations of skin (principal); R60.9 Edema, unspecified; G60.9 Hereditary and idiopathic neuropathy, unspecified; B35.1 Tinea unguium; L84 Corns and callosities; M77.41 Metatarsalgia, right foot; M77.42 Metatarsalgia, left foot | CPT/HCPCS: 99213 ==

== ENCOUNTER → 2025-07-04 08:26 | Outpatient (BNVA) | payer MEDICARE, SELFPAY | PROVIDERS: PCP Family Medicine; Visit Provider Family Medicine | DX: M79.7 Fibromyalgia (principal); I10 Essential (primary) hypertension; E03.9 Hypothyroidism, unspecified; G60.9 Hereditary and idiopathic neuropathy, unspecified | CPT/HCPCS: 80053; 82306; 82607; 83735; 84100; 84439; 84443; 85025; 86140 ==

== ENCOUNTER 2025-07-24 15:26 | Outpatient (CLI) | payer MEDICARE, SELFPAY ==
--- NOTE | 2025-07-24 16:00 | MR_ITS ---
WS: [id number] MRI LUMBAR SPINE NONCONTRAST HISTORY: back pain/ sciatica/ rule out cauda equina syndrome, LEFT leg weakness. COMPARISON: 01/27/2018 TECHNIQUE: Sagittal and axial multisequence imaging is submitted. Moderate RIGHT curvature of the lumbar spine. Same numbering pattern will be used as on 2018 exam. Increase in the amount of levoscoliosis since the prior study. Mild increase in the lumbar lordosis. No acute fracture or marrow edema. Disc spaces and vertebral body heights are well-preserved. Conus terminates normally at L1-2 disc level. L1-L2: Annular disc bulging with bilateral facet joint arthritis. Moderate RIGHT foraminal stenosis. L2-L3: Diffuse annular disc bulging with RIGHT paracentral disc protrusion. Moderate ligamentum flavum and facet arthritis. Moderate to severe RIGHT foraminal stenosis. L3-L4: Diffuse annular disc bulging with ligamentum flavum and facet arthritis. Disc encroachment upon the subarticular recesses and ventral thecal sac. Moderate central with bilateral subarticular recess stenosis and mild bilateral foraminal stenosis. L4-L5: Diffuse annular disc bulging with marked ligamentum flavum and facet arthritis. Moderate central, bilateral subarticular recess and mild foraminal stenosis. L5-S1: Diffuse annular disc bulging asymmetric to the LEFT. Ligamentum flavum disease and facet arthritis encroaching into the thecal sac. Moderate to severe central and bilateral subarticular recess stenosis. There is more significant LEFT subarticular recess and foraminal stenosis with significant encroachment upon the LEFT S1 nerve root. Moderate LEFT foraminal stenosis. Parapelvic cysts within each kidney. Common bile duct is dilated to 11 mm. Questionable stone in the gallbladder neck. MR/MR lumbar spine wo con* [id number] IMPRESSION: 1. Progression of levoscoliosis and increase in lumbar lordosis since 8. 2. Progression of central and foraminal stenosis since the prior study. 3. Moderate foraminal stenosis at L1-2. 4. Moderate to severe RIGHT foraminal stenosis at L2-3. 5. Moderate central with bilateral subarticular recess and mild foraminal sten osis at L3-4. 6. Moderate central, bilateral subarticular recess and mild foraminal stenosis at L4-5. 7. Moderate to severe central and bilateral subarticular recess stenosis at L5 -S1. Greater stenosis involving the LEFT subarticular recess and LEFT foramen w ith significant encroachment upon the LEFT S1 nerve root. Moderate LEFT foramin al stenosis. 8. Possible common bile duct dilatation and small gallstone in the gallbladder neck. Consider RIGHT upper quadrant ultrasound.
== END 2025-07-24 15:27 | disposition home or self-care (01) ==
LOC: RAD 15:27
PROVIDERS: PCP Family Medicine; Visit Provider Family Medicine
DX: G83.4 Cauda equina syndrome (principal); M40.56 Lordosis, unspecified, lumbar region; M48.061 Spinal stenosis, lumbar region without neurogenic claudication; M48.07 Spinal stenosis, lumbosacral region; M54.17 Radiculopathy, lumbosacral region; G99.2 Myelopathy in diseases classified elsewhere; K82.9 Disease of gallbladder, unspecified
CPT/HCPCS: 72148

== ENCOUNTER 2025-07-30 07:32 | Outpatient (CLI) | payer MEDICARE, SELFPAY ==
--- NOTE | 2025-07-30 08:00 | US_ITS ---
WS: [email or web address] RIGHT UPPER QUADRANT ULTRASOUND HISTORY: stone in cystic duct on Ct COMPARISON: MRI 07/24/2025 Liver: 13.2 cm in length. Normal size with mild hepatic steatosis. No intrahepatic duct dilatation. Portal Vein: Normal hepatopetal flow with monophasic waveform. Gallbladder: Gallbladder is absent. CBD: 1.0 cm Pancreas: Completely obscured by bowel gas. Right kidney: 9.6 cm in length. Normal size and echogenicity. No hydronephrosis or mass. Aorta and IVC: Unremarkable abdominal aorta and IVC. No ascites. US/US liver [id number] IMPRESSION: 1. Patient is status post cholecystectomy. This was not apparent on the prior MRI. There is a small fluid collection thought to be the gallbladder but may noguera ve been prominent common bile duct and portal vein the andrew hepatis. 2. Common bile duct is dilated to 1.0 cm but this is appropriate for status po st cholecystectomy. No acute duct dilatation suspected.
== END 2025-07-30 07:33 | disposition home or self-care (01) ==
LOC: RAD 07:33
PROVIDERS: PCP Family Medicine; Visit Provider Family Medicine
DX: R11.0 Nausea (principal); R10.9 Unspecified abdominal pain; K76.0 Fatty (change of) liver, not elsewhere classified; Z98.890 Other specified postprocedural states
CPT/HCPCS: 76705

== ENCOUNTER → 2025-07-31 14:52 | Outpatient (BNVA) | payer MEDICARE, SELFPAY | PROVIDERS: PCP Family Medicine; Visit Provider Orthopaedic Surgery | DX: Z01.818 Encounter for other preprocedural examination (principal); M48.062 Spinal stenosis, lumbar region with neurogenic claudication | CPT/HCPCS: 36415; 72110; 80053; 81001; 85025; 99204; 99214 ==

== ENCOUNTER → 2025-08-06 10:20 | Day surgery (SDC) | payer MEDICARE, SELFPAY ==
[2025-08-06] VITALS (16 sets, daily range): BP systolic 116–134; BP diastolic 42–74; PULSE 56–83; RESP 16–18; TEMP 36.4–36.9; O2SAT 97–99; BMI 36.6
--- NOTE | 2025-08-06 10:23 | ANES.PREANE2 ---
Pre-Anesthetic Assessment Height/Weight: Height 5 ft 5 in Preop Diagnosis: Lumbar stenosis Operation Date: 08/06/25 12:10 Proposed Procedures p Lumbar Spine Decompression(Not Applicable) - Adam Armenta, DO Was Beta Alvina taken within 24 hours: Yes Was Clonidine taken within 24 hours: N/A Social No alcohol and No tobacco Exam alert, oriented x 3, clear to auscultation bilaterally and regular rate & rhythm Airway Submandibular: within normal limits Cervical ROM: within normal limits Mallampati: Class II Comments: Comments: Upper missing teeth, denies any loose Anesthetic Plan Other: Patient states that she was overdosed on narcotics during her previous surgery and stopped breathing and recovery requiring Narcan NPO since yesterday evening History of hypertension on amlodipine, losartan and metoprolol. Preop BP 116/72 GERD, controlled with Protonix RADHA, CPAP nightly Hypothyroidism on Synthroid Patient has been on a short steroid taper. 20 mg daily. Completes this tomorrow Labs reviewed from 07/31/2025 and acceptable for procedure today Echo performed on 09/11/2024 showing an EF of 65% with no RWMA Plan for GETA Medications/Allergies Home Medications ?Medication ?Instructions ?Recorded ?Confirmed ?Last Taken ?Type Compression Stockings #1 ea 06/24/22 08/01/25 Unknown Rx albuterol sulfate 2.5 mg/3 mL 2.5 mg (3 mL) inhalation Q4H PRN 10/01/23 08/03/25 Unknown Rx (0.083 %) solution for nebulization shortness of breath or wheezing #75 mL albuterol sulfate 90 mcg/actuation 2 inh inhalation QID PRN shortness 10/01/23 08/03/25 Unknown Rx aerosol inhaler of breath or wheezing #8.5 grams fluticasone propionate 220 1 puff inhalation BID #12 grams 10/01/23 08/03/25 Unknown Rx mcg/actuation HFA aerosol inhaler (Flovent HFA) alprazolam 0.25 mg tablet 0.25 mg PO BID PRN anxiety #60 tabs 05/26/24 08/03/25 Unknown Rx trazodone 100 mg tablet 100 mg PO .QHS #30 tabs 08/03/24 08/03/25 Unknown Rx amlodipine 5 mg tablet 5 mg PO DAILY #60 tabs 12/08/03/25 08/06/25 Rx prednisone 20 mg tablet 20 mg PO DAILY #5 tabs 12/07/24 08/03/25 08/05/25 Rx Sole Supports #1 ea 02/06/25 08/01/25 Unknown Rx clotrimazole-betamethasone 1 1 applic topical BID #30 mL 02/27/25 08/03/25 Unknown Rx %-0.05 % lotion ondansetron 4 mg disintegrating 4 mg PO Q6H PRN nausea and 07/23/25 08/06/25 08/06/25 Rx tablet vomiting #20 tabs hydrocodone 10 mg-acetaminophen 1 tab PO Q4H PRN pain 2 weeks #90 07/25/25 08/03/25 08/06/25 Rx 325 mg tablet tabs levothyroxine 100 mcg tablet 100 mcg PO DAILY 08/03/25 08/03/25 08/06/25 History losartan 50 mg tablet 50 mg PO BID 08/03/25 08/03/25 08/05/25 History metoprolol tartrate 25 mg tablet 25 mg PO BID 08/03/25 08/03/25 08/06/25 History pantoprazole 40 mg tablet,delayed 40 mg PO BID 08/03/25 08/03/25 08/06/25 History release tizanidine 4 mg tablet 4 mg PO BID PRN Muscle Spasm 08/03/25 08/03/25 08/05/25 History Allergies Allergy/AdvReac Type Severity Reaction Status Date / Time shellfish derived Allergy Intermediate sob Verified 07/31/25 11:46 vancomycin Allergy Intermediate ALGY-Hives Verified 07/31/25 11:46 ethyl alcohol Allergy ALGY-Difficulty Verified 07/31/25 11:46 Breathing pregabalin (From Lyrica) Allergy ADR-Nausea Verified 07/31/25 11:46 tramadol (From Ultram) AdvReac Intermediate nausea Verified 07/31/25 11:46 amoxicillin (From Augmentin) AdvReac Mild vomitting Verified 07/31/25 11:46 azithromycin AdvReac Mild diarrhea Verified 07/31/25 11:46 clavulanic acid (From AdvReac Mild vomitting Verified 07/31/25 11:46 Augmentin) erythromycin base AdvReac Mild vomitting Verified 07/31/25 11:46 [facility] Anesthesia Medical History (Updated 08/01/25 @ 13:32 by Matt Ram MD) RADHA (obstructive sleep apnea) compliant with CPAP Inappropriate sinus tachycardia MTHFR mutation Hypertension Fibromyalgia Hyperlipidemia not currently on medication Hypothyroid Idiopathic neuropathy Surgical History History of hernia surgery Hx of hysterectomy hyst with oopherectomy History of laparoscopic cholecystectomy History of hip surgery Hx of total knee replacement Family History Mother Stroke Heart disease Ovarian cancer Thyroid disease Grandmother Colon cancer Hypertension Stroke Grandfather Diabetes Heart disease Hypertension Stroke Father Heart disease Hypercholesteremia Hypertension Stroke Denies family history of Prostate cancer Breast cancer Uterine cancer Social History Smoking and tobacco/nicotine status: never used tobacco/nicotine Data Anesthesia Cardiac Studies: Echocardiogram 09/11/24 Sestamibi Stress Test (Cardiology) 09/11/24
[2025-08-06] MEDS: metoclopramide 5 mg/mL SDV 2 mL 10 MG IVP (11:26)
--- NOTE | 2025-08-06 11:35 | W.PM.OPSUD ---
Surgery/Procedure H&P Update DATE OF PROCEDURE: August 06, 2025 DATE H&P PERFORMED: 07/31/25 H&P UPDATE INFORMATION: I have reviewed H&P completed within last 30 days, I have examined patient prior to procedure and No changes to prior documentation PREOP DIAGNOSIS: Lumbar stenosis PLANNED PROCEDURE: Operation Date: 08/06/25 12:10 Proposed Procedures p Lumbar Spine Decompression(Not Applicable) - Adam Armenta DO
[2025-08-06] MEDS: lidocaine-epi 1% PF 1:200,000 30 mL SDV INJECTION (12:10)
--- NOTE | 2025-08-06 13:18 | P.OP_ITS ---
Operative Report Date of procedure: August 06, 2025 Pre-op diagnosis: Lumbar stenosis with neurogenic claudication Post-op diagnosis: same Procedure done: 1. L3/4 laminectomy with partial facetectomy 2. L4/5 laminectomy with partial facetectomy 3. L5/S1 laminectomy with partial facetectomy Surgeon: Adam Armenta DO Estimated blood loss (mL): 15 Procedure: 1. L3/4 laminectomy with partial facetectomy 2. L4/5 laminectomy with partial facetectomy 3. L5/S1 laminectomy with partial facetectomy Patient is brought to the operative suite. After undergoing anesthesia they are placed in the prone position. All areas of impingement are well padded. Patient is then prepped and draped in the normal sterile fashion. A skin incision is made over the L3/4 level. This is confirmed under c-arm guidance. A series of dilators are passed and the tubular retractor is docked on the L3 lamina. A bovie is used to clear the soft tissue off the lamina and the L 3/4 facet joint. A high speed edi is then used to perform the laminectomy and take down the medial aspect of the L 3/4 facet joint. A kerrison rongeure was then used to take down the remaining lamina and smooth the edge of the laminectomy up to the point where the ligamentum flavum attaches. Attention was then brought to the medial aspect of the facet joint. The remaining medial aspect of the superior and inferior aspect of the facet joint were taken down with the kerrison from the pedicle of L3 to L 4. The facet j oint had significant hypertrophy. Attention was then brought to the Ligamentum Flavum. The ligament was taken down from the lamina of L3 to L4 and out medially to the remaining facet joint. The ligament was pick. The dura was then exposed. The dura was in good repair. The L3 nerve was then traced with a curette out the L3/4 foramen and found to be adequately decompressed. The L4 nerve was traced with a curette around the L4 pedicle. The lateral recess was opened with a kerrison helping to further decompress the L4 nerve. Wound is then irrigated copiously with saline and surgiflo is used to stop any bleeding. The tubular retractor is removed A skin incision is made over the L4/5 level. This is confirmed under c-arm guidance. A series of dilators are passed and the tubular retractor is docked on the L4 lamina. A bovie is used to clear the soft tissue off the lamina and the L 4/5 facet joint. A high speed edi is then used to perform the laminectomy and take down the medial aspect of the L 4/5 facet joint. A kerrison rongeure was then used to take down the remaining lamina and smooth the edge of the laminectomy up to the point where the ligamentum flavum attaches. Attention was then brought to the medial aspect of the facet joint. The remaining medial aspect of the superior and inferior aspect of the facet joint were taken down with the kerrison from the pedicle of L4 to L 5. The facet joint had significant hypertrophy. Attention was then brought to the Ligamentum Flavum. The ligament was taken down from the lamina of L4 to L5 and out medially to the remaining facet joint. The ligament was thick. The dura was then exposed. The dura was in good repair. The L4 nerve was then traced with a curette out the L4/5 foramen and found to be adequately decompressed. The L5 nerve was traced with a curette around the L5 pedicle. The lateral recess was opened with a kerrison helping to further decompress the L5 nerve. Wound is then irrigated copiously with saline and surgiflo is used to stop any bleeding. The tubular retractor is removed A skin incision is made over the L5/S1 level. This is confirmed under c-arm guidance. A series of dilators are passed and the tubular retractor is docked on the L5 lamina. A bovie is used to clear the soft tissue off the lamina and the L 5/S1 facet joint. A high speed edi is then used to perform the laminectomy and take down the medial aspect of the L 5/S1 facet joint. A kerrison rongeure was then used to take down the remaining lamina and smooth the edge of the laminectomy up to the point where the ligamentum flavum attaches. Attention was then brought to the medial aspect of the facet joint. The remaining medial aspect of the superior and inferior aspect of the facet joint were taken down with the kerrison from the pedicle of L5 to S1. The facet joint had significant hypertrophy. Attention was then brought to the Ligamentum Flavum. The ligament was taken down from the lamina of L5 to S1 and out medially to the remaining facet joint. The ligament was thick. The dura was then exposed. The dura was in good repair. The L5 nerve was then traced with a curette out the L L5/S1 foramen and found to be adequately decompressed. The S1 nerve was traced with a curette around the what we couldS1 a week we will use it this week read tag pedicle. The lateral recess was opened with a kerrison helping to further decompress the S1 nerve. Wound is then irrigated copiously with saline and surgiflo is used to stop any bleeding. The tubular retractor is removed and the wound is closed with vicryl and monocryl suture. Steri strips were applied. A sterile dressing is then placed. Patient was then placed in the supine position and transferred to the PACU in stable condition.
[2025-08-06] MEDS: fentaNYL 50 mcg/mL INJ 2mL IVP ×2 (13:28→13:38)
--- NOTE | 2025-08-06 13:56 | XR_ITS ---
WS: [email or web address] Lumbar spine, C-arm fluoroscopy views, 08/06/2025 Clinical Data: or pic, Comparison: Lumbar spine, 07/31/2025 Findings: Dr. Armenta performed a lumbar decompression. XR/XR lumbar spine 1V [id number] Impression: Lumbar decompression.
[2025-08-06] MEDS: HYDROmorphone 1 mg/mL INJ 1ml 0.5 MG IVP (13:57)
[2025-08-06] MEDS: HYDROcodone-acetaminophen 10-325 mg Tablet 1 TAB PO (14:42)
--- NOTE | 2025-08-06 15:36 | ANE.PACU2 ---
Inpatient post-anesthesia follow up: Airway intact: Yes Vital signs: Temperature 98.4 F Pulse Rate 71 Respiratory Rate 18 Blood Pressure 132/64 Pulse Oximetry 99 Oxygen Delivery Me thod Room Air Oxygen Flow Rate Fraction of Inspir ed Oxygen Hydration adequate: Yes Nausea and vomiting: No Pain level: 1 Mental status: Baseline
== END | disposition home or self-care (01) ==
PROVIDERS: PCP Family Medicine; Visit Provider Orthopaedic Surgery
PROC: (CPT 63005; principal; 2025-08-06 11:50)
DX: M48.062 Spinal stenosis, lumbar region with neurogenic claudication (principal); G47.33 Obstructive sleep apnea (adult) (pediatric); Z99.89 Dependence on other enabling machines and devices; K21.9 Gastro-esophageal reflux disease without esophagitis; E03.9 Hypothyroidism, unspecified; Z79.891 Long term (current) use of opiate analgesic; I10 Essential (primary) hypertension; M79.7 Fibromyalgia; E78.5 Hyperlipidemia, unspecified
CPT/HCPCS: 63047; 63048 ×2; 72020; 76000; A4649; J1171; J2250; J2405; J2704; J2765; J3010; J3490; J7030; J9999

== ENCOUNTER → 2025-08-15 06:58 | Outpatient (BNVA) | payer MEDICARE, SELFPAY | PROVIDERS: PCP Family Medicine; Visit Provider Podiatrist Foot & Ankle Surgery | DX: Q82.8 Other specified congenital malformations of skin (principal); R60.9 Edema, unspecified; G60.9 Hereditary and idiopathic neuropathy, unspecified; B35.1 Tinea unguium; L84 Corns and callosities; M77.41 Metatarsalgia, right foot; M77.42 Metatarsalgia, left foot | CPT/HCPCS: 11721; 99213 ==

== ENCOUNTER → 2025-08-16 14:22 | Outpatient (BNVA) | payer MEDICARE, SELFPAY | PROVIDERS: PCP Family Medicine; Visit Provider Family Medicine | DX: R33.9 Retention of urine, unspecified (principal); M48.062 Spinal stenosis, lumbar region with neurogenic claudication; R53.1 Weakness | CPT/HCPCS: 80053; 81000; 85025; 86140; 87086 ==

== ENCOUNTER 2025-08-17 16:20 | Outpatient (CLI) | payer MEDICARE, SELFPAY ==
--- NOTE | 2025-08-17 16:45 | US_ITS ---
WS: [email or web address] URINARY BLADDER ULTRASOUND HISTORY: evaluation for urinary retention COMPARISON: None available. Urinary bladder is minimally distended. No intraluminal filling defect. No free fluid adjacent to the urinary bladder. Bladder Wall Thickness: 0.4 cm. Bladder Prevoid: 5.6 cm x 4.9 cm x 6.0 cm. Prevoid volume: 86.3 ml. Bladder Postvoid: 3.0 cm x 2.2 cm x 2.8 cm. Postvoid volume: 9.6 ml. US/US bladder [id number] IMPRESSION: 1. Minimal distention of the urinary bladder. 2. No significant post void residual. 3. No intraluminal mass.
== END 2025-08-17 16:21 | disposition home or self-care (01) ==
LOC: RAD 16:23
PROVIDERS: PCP Family Medicine; Visit Provider Family Medicine
DX: R33.9 Retention of urine, unspecified (principal)
CPT/HCPCS: 76857

== ENCOUNTER → 2025-08-21 07:54 | Outpatient (BNVA) | payer MEDICARE, SELFPAY | PROVIDERS: PCP Family Medicine; Visit Provider Orthopaedic Surgery | DX: Z98.890 Other specified postprocedural states (principal) | CPT/HCPCS: 99024 ==

== ENCOUNTER 2025-09-12 07:38 | Outpatient (CLI) | payer MEDICARE, SELFPAY ==
--- NOTE | 2025-09-12 07:46 | MM_ITS ---
WS: [email or web address] BILATERAL SCREENING DIGITAL TOMOSYNTHESIS MAMMOGRAM WITH CAD HISTORY: SCREENING COMPARISON: 09/11/2024, 09/08/2023, 08/28/2020 Bilateral CC and MLO views with tomosynthesis and synthetic mammography submitted. Computer aided detection analyzed. Breast composition: The breasts are heterogeneously dense, which may obscure small masses. No suspicious masses, microcalcifications or architectural distortion. Scattered asymmetries and arterial calcifications within each breast. MM/MM scr tomosynthesis [id number] IMPRESSION: BI-RADS: 2 - Benign FOLLOW UP: 1 Year Follow-up
== END 2025-09-12 07:39 | disposition home or self-care (01) ==
LOC: RAD 07:40
PROVIDERS: PCP Family Medicine; Visit Provider Family Medicine
DX: Z12.31 Encounter for screening mammogram for malignant neoplasm of breast (principal); R92.333 Mammographic heterogeneous density, bilateral breasts; N64.89 Other specified disorders of breast
CPT/HCPCS: 77063; 77067

== ENCOUNTER → 2025-09-18 07:41 | Outpatient (BNVA) | payer MEDICARE, SELFPAY | PROVIDERS: PCP Family Medicine; Visit Provider Orthopaedic Surgery | DX: Z98.890 Other specified postprocedural states (principal) | CPT/HCPCS: 99024 ==